=== PATIENT | male | born 1930 | race Caucasian/White ===

== ENCOUNTER 2016-07-18 07:21 | Observation (INO) | payer MEDICARE ==
[~2016-07-18] VITALS: Ht 177.8 cm; Wt 66.5 kg
--- NOTE | ~2016-07-18 | OR ---
PATIENT'S NAME: MARCELINO MARTELL [facility] AGE: 86 Y [address] ROOM: [address] [address] LOCATION: [facility] [place] ADMIT DATE: 07/18/2016 OR/Procedure Report DISCHARGE DATE: FAMILY PHYSICIAN: Jaspreet Kaminski PA-C ATTENDING PHYSICIAN: MARILIA CHAVEZ SURGEON: aMrilia Chavez MD PROJECT ENGINEERING MANAGER: None. DATE OF PROCEDURE: 07/18/2016 PREOPERATIVE DIAGNOSES: 1. Urinary retention. 2. Benign prostatic hyperplasia. POSTOPERATIVE DIAGNOSES: 1. Urinary retention. 2. Benign prostatic hyperplasia. OPERATIVE PROCEDURE: Transurethral resection of prostate. ANESTHESIA ADMINISTERED: General endotracheal anesthesia. INDICATIONS FOR PROCEDURE: The patient is a pleasant 86-year-old male with history of BPH with urinary retention despite pharmacologic therapy with tamsulosin. He has failed multiple trials of void and continues to remain catheter dependent. The patient was explained the risks, benefits, indications, and alternatives of the above procedure and wished proceed and consented freely. DESCRIPTION OF OPERATION: The patient was brought back to the operating room, where he was placed on the OR table in the supine position. A surgical time- out was called where patient identification, surgical site, and procedure were then verified. We also did verify that the patient received an IV Levaquin antibiotic within an hour of beginning the procedure. The patient was then moved and placed in a low lithotomy position after he had underwent successful administration of general anesthesia. Of note, his genital area had been prepped and draped in the usual sterile fashion. I began by advancing the resectoscope using the visual obturator easily into the patient's urinary bladder. His anterior urethra was within normal limits. His posterior urethra was notable for severe bilobar hyperplasia of the prostate. I began by using the bipolar loop to carefully resect prostate tissue starting with the lateral lobes resecting from base to apex taking care to preserve the verumontanum. I then resected his median lobe and then transitioned over to the button electrode to carefully vaporize any remaining obstructing tissue. When I was complete with the resection, I had a nice opened prostatic urethra and I then switched over to the rollerball to assure hemostasis and carefully PATIENT'S NAME: MARCELINO MARTELL [facility] AGE: 86 Y [address] ROOM: [id number] [place], [place] [id number] LOCATION: [facility] [place] ADMIT DATE: 07/18/2016 OR/Procedure Report DISCHARGE DATE: FAMILY PHYSICIAN: Jaspreet Kaminski PA-C ATTENDING PHYSICIAN: MARILIA CHAVEZ cauterized the resection bed. Once I was finished, there was excellent hemostasis and I removed the resectoscope and then placed a 24-Indonesian 3-way Collazo catheter to continuous bladder irrigation. The patient was then taken out of the lithotomy position where he was then awoken from general anesthesia, extubated, and transferred to recovery bed and transported to the recovery room in good condition. Of note, I did use 30 mL of sterile water for the Collazo balloon. COMPLICATIONS: None. DRAINS: Indwelling 24-Indonesian 3-way Collazo catheter to continuous bladder irrigation. SPECIMENS: Transurethral resection of prostate. Specimens for pathologic analysis. ESTIMATED BLOOD LOSS: Less than 50 mL. FOLLOWUP PLAN: We will plan to observe the patient overnight and wean him of the continuous bladder irrigation with likely discharge home tomorrow, then catheter removal this Thursday. MARILIA CHAVEZ MD GP/modl /[id number] d: 07/18/16 1214 t: 07/18/16 1723, OPERATIVE SUMMARY
[~2016-07-18 07:21] MED LIST: ASPIRIN LO-DOSE81 MG PO; LISINOPRIL-HCT1 EAC1 PO; PRILOSEC20 MG PO; ZOCOR40 MG PO
--- NOTE | 2016-07-18 15:32 | NUR ---
Significant Event: PT UP FROM PACU AT 1220. OBSERVATION FOR DR STEVENS, CYSTOSCOPY, BUTTON TURP. CBI RUNNING SLOW, URINE IS CLEAR TO LIGHT PINK IN COLOR. STATES PAIN IS TOLERABLE. TOLERATING LIQUID DIET, ADVANCED TO REGULAR FOR DINNER. INCENTIVE SPIROMETER 10X/HR. ORDERS TO AMBULATE TID STARTING TOMORROW AM. IVF RUNNING D51/2NS @ 120, CAN BE SALINE LOCKED WHEN SILVINO PO. Follow up: LAST HOURLY POST OP AT 1900, START AMBULATING IN AM
--- NOTE | 2016-07-19 04:09 | NUR ---
Significant Event: Pt is alert and oriented. VSS on RA. IV to the R)wrist now SL. CBI running slow with light pink urine drainig, will clamp this am at 0600. [place] last given at 0042. Tolerating a regular diet. To ambulate TID today. Follow Up: Continue to monitor.
[2016-07-19 04:18] LABS: BASOPHIL % 0.1 %; EOSINOPHIL # 0.2 K/uL (0.0-0.5); EOSINOPHIL % 2.1 %; IMMATURE GRANULOCYTE % 0.3 %; LYMPHOCYTE # 3.2 K/uL (0.8-4.0); LYMPHOCYTE % 27.5 %; MCH 31.3 pg (27.0-34.0); MCHC 32.3 gm/dL (32.0-36.5); MCV 97.2 fl (83.0-98.0); MONOCYTE # 0.9 K/uL (0.0-1.0); MONOCYTE % 8.1 %; MPV 9.5 fl (9.4-12.4); NEUTROPHIL # (ANC) 7.2 K/uL (1.4-9.0); NEUTROPHIL % 61.9 %; NRBC % 0 /100WBC (0-0.00); PLATELET COUNT 226 K/uL (150-450); RBC 3.19 M/uL (3.50-5.50); RDW-CV 13.4 % (11.9-14.6); WBC 11.6 K/uL (4.0-11.0)
[2016-07-19 04:33] LABS: ANION GAP 9.9 (10.0-19.0); BLOOD UREA NITROGEN 16 mg/dL (6-24); CHLORIDE 107 mMol/L (96-110); CO2 28 mMol/L (22-32); CREATININE 0.9 mg/dL (0.6-1.3); ESTIMATED GFR (MDRD EQUATION) > 60; POTASSIUM 3.9 mMol/L (3.7-5.1); SODIUM 141 mMol/L (135-145)
[2016-07-19] MEDS ORDERED: COLACE100 MG PO (10:12)
[2016-07-19] MEDS ORDERED: TYLENOL EXTRA500 MG PO (10:13)
[2016-07-19] MEDS ORDERED: NEOSPORIN1 PKT TOP (10:25)
== END 2016-07-19 11:00 | disposition disaster alternative care site (69) ==
LOC: GSDC 07:21 → GMSU 07:21 → G3N 07:21 → GSDC 08:00 → GMSU 12:00 → GSDC 12:01 → GMSU 07-19 11:00
PROVIDERS: ADMIT Urology
PROC: 0VT08ZZ Resection of Prostate, Via Natural or Artificial Opening Endoscopic (ICD-10-PCS; principal; 2016-07-18)
DX: N40.1 Benign prostatic hyperplasia with lower urinary tract symptoms (principal); R33.8 Other retention of urine; Z79.899 Other long term (current) drug therapy; K21.9 Gastro-esophageal reflux disease without esophagitis
CPT/HCPCS: G0378; J1956; J2001; J7030